=== PATIENT | male | born 1945 | race Caucasian/White ===

== ENCOUNTER 2016-08-02 20:33 | Emergency (ER) | payer MEDICARE, OTHER ==
[~2016-08-02 20:33] MED LIST: ADULT LOW DOSE81 MG PO; ALBUTEROL2.5 MG/0.5 NEB; ALL DAY ALLERGY10 M3 PO; AMARYL 2MG TABLE2 MG PO; ASPIRIN EC81 MG PO; CLARITIN10 MG PO; FENOFIBRATE160 MG PO; JANUVIA100 MG PO; LASIX TAB 20 MG20 MG PO; LIPITOR TAB 2020 MG PO; LOSARTAN POTAS100 MG PO; NORVASC 5 MG TAB5 MG PO; PLAVIX 75 MG TA75 MG PO; PROTONIX40 MG PO; ROBAXIN500 MG PO; SPIRONOLACTONE25 MG PO; SYMBICORT 16010.2 GM INH; TESSALON PERLE100 MG PO; TOPROL XL200 MG PO; TYLENOL 325MG325 MG PO; ZETIA 10 MG TAB10 MG PO
[2016-08-02 23:09] LABS: HEMOGLOBIN 15.6 gm/dl (14.0-17.5); RED BLOOD COUNT 5.28 M/UL (4.20-5.50); WHITE BLOOD COUNT 11.8 K/UL (4.5-11.0)
== END 2016-08-03 02:58 | disposition home or self-care (01) ==
LOC: EDBD 20:33 → ER1 20:33
PROVIDERS: Family Medicine
DX: J18.9 Pneumonia, unspecified organism (principal); J44.9 Chronic obstructive pulmonary disease, unspecified; E11.9 Type 2 diabetes mellitus without complications; Z95.5 Presence of coronary angioplasty implant and graft
CPT/HCPCS: 36415; 36600; 71020; 80053; 81001; 82803; 85025; 87040; 87081; 87086; 87880; 93005; 94664; 96374; 99284; J7040

== ENCOUNTER → 2016-09-03 | Outpatient (CLI) | payer MEDICARE, OTHER | LOC: US 10:32 | DX: N50.89 Other specified disorders of the male genital organs (principal) | CPT/HCPCS: 76870 ==

== ENCOUNTER 2016-09-27 18:56 | Emergency (ER) | payer MEDICARE, OTHER | END 2016-09-28 01:49 | disposition left against medical advice (07) | LOC: ER1 18:56 | DX: Z53.21 Procedure and treatment not carried out due to patient leaving prior to being seen by health care provider (principal) | CPT/HCPCS: 81001; 99283 ==